=== PATIENT | female | born 1985 | race Caucasian/White ===

== ENCOUNTER 2016-09-19 08:41 | Emergency (ER) | payer OTHER ==
[~2016-09-19] VITALS: Ht 175.3 cm; Wt 85.0 kg
[2016-09-19 08:43] VITALS: BP 162/90; PULSE 65; RESP 15; TEMP 98.2; O2SAT 98
--- NOTE | 2016-09-19 08:54 | PD ---
HPI . left shoulder pain x 1 day Chief Complaint: Fall Time Seen by Provider: 08:53 Travel History International Travel<30 days: No Contact w/Intl Traveler<30days: No Traveled to known affect area: No History of Present Illness HPI 31 yr old female here with c/o left shoulder pain after falling on her arm last night. She tells me the pain in deep within the shoulder blade rated as 5/10 and hurts with movement. She denies any pain elsewhere and denies any head injury. PFSH Past Medical History ?: Not LMP: 2 WEEKS AGO Social History Tobacco Use: Yes Allergies-Medications (Allergen,Severity, Reaction): Coded Allergies: No Known Allergies (Unverified , 09/19/16) Reported Meds & Prescriptions Reported Meds & Active Scripts Active Flexeril (Cyclobenzaprine HCl) 5 Mg Tab 5 Mg PO TID Review of Systems General / Constitutional: No: Fever Eyes: No: Visual changes HENT: No: Headaches Cardiovascular: No: Chest Pain or Discomfort Respiratory: No: Shortness of Breath Gastrointestinal: No: Abdominal Pain Genitourinary: No: Dysuria Musculoskeletal: Positive: Pain (left shoulder) Skin: No Rash Neurologic: No: Weakness Psychiatric: No: Depression Endocrine: No: Polydipsia Hematologic/Lymphatic: No: Easy Bruising Physical Exam Narrative GENERAL: AAO x 3, no acute distress, Well-nourished, well-developed patient. SKIN: Warm and dry. No visible rashes or bruising. HEAD: Normocephalic and atraumatic. EYES: No scleral icterus. No injection or drainage. ENT: No nasal drainage noted. Mucous membranes pink. Airway patent. NECK: Supple, trachea midline. No JVD. CARDIOVASCULAR: Regular rate and rhythm without murmurs, gallops, or rubs. RESPIRATORY: Breath sounds equal bilaterally. No accessory muscle use. No rhonchi or rales. GASTROINTESTINAL: Abdomen soft, non-tender, nondistended. EXTREMITIES: No cyanosis or edema. left shoulder no evidence of dislocation, pain with internal and external rotation BACK: Nontender without obvious deformity. No CVA tenderness. 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 Data Data Last Documented VS Vital Signs Date Time Temp Pulse Resp B/P Pulse Ox O2 Delivery O2 Flow Rate FiO2 09/19/16 08:55 99 Room Air 09/19/16 08:43 98.2 65 15 162/90 Orders Shoulder, Complete (>2vws) (09/19/16 08:58) Support Splint (09/19/16 09:39) MDM Medical Decision Making Medical Screen Exam Complete: Yes Emergency Medical Condition: Yes Medical Record Reviewed: Yes Differential Diagnosis rotator cuff injury, less likely fracture, less likely dislocation Narrative Course 31 yr old female with left shoulder pain x1 day. It appears she may have a rotator cuff injury. She reports pain deep in her shoulder blader. I will check xray to r/o any bony abn due to mechanism of injury. She already took some ibuprofen this morning. Last Impressions Shoulder X-Ray 09/19/16 0858 Signed Impressions: Service Date/Time: Monday, September 19, 2016 09:31 - CONCLUSION: 1. No acute fracture or dislocation. Ace Montana MD I explained to the patient this seems more rotator cuff. Sling provided for support. Muscle relaxers at home. Recommend PCP f/u. Patient verbalized understanding of instructions, questions were answered, and thanked me for their care. I advised them if their condition worsens, please return to the nearest emergency room for further care. Diagnosis Primary Impression: Shoulder pain, left Qualified Code: M25.512 - Acute pain of left shoulder Additional Impression: Rotator cuff injury Qualified Code: S46.002A - Rotator cuff injury, left, initial encounter Patient Instructions: General Instructions Departure Forms: Tests/Procedures, Work Release Enter return to work date: Sep 20, 2016 Additional Instructions: Please follow-up with your primary care provider for further workup and treatment. Muscle relaxers can cause drowsiness. Do not drive, swim or operate heavy machinery while using these medications. Please return to emergency department if your symptoms return or worsen. Follow up with your primary care provider. Take medications as prescribed. Med/Other Pt SpecificInfo: Prescription(s) given Scripts Cyclobenzaprine (Flexeril)5 Mg Tab5 Mg PO TID #21 TAB Prov:Shola Burgess MD 09/19/16 Disposition: 01 DISCHARGE HOME Condition: Stable Martha Noe Sep 19, 2016 08:54
--- NOTE | 2016-09-19 09:36 | RADRPT ---
EXAM DATE/TIME: 09/19/2016 09:31 [facility] COMPARISON: No previous studies available for comparison. INDICATIONS : Fall. Left shoulder pain. MEDICAL HISTORY : None. SURGICAL HISTORY : None. ENCOUNTER: Initial ACUITY: 1 day PAIN SCORE: 6/10 LOCATION: Left shoulder FINDINGS: Multiple view examination of the left shoulder demonstrates no evidence of fracture or dislocation. The glenohumeral and acromioclavicular joints are maintained. There is normal range of motion betwee n internal and external rotation. Bony mineralization is normal. CONCLUSION: 1. No acute fracture or dislocation. Ace Montana MD on September 19, 2016 at 9:33 Board Certified Radiologist. This report was verified electronically.
[2016-09-19] MEDS ORDERED: CYCL5TAB PO (09:40)
== END 2016-09-19 09:56 | disposition home or self-care (01) ==
LOC: NEPK 08:41
DX: M25.512 Pain in left shoulder (principal); S46.002A Unspecified injury of muscle(s) and tendon(s) of the rotator cuff of left shoulder, initial encounter; Z72.0 Tobacco use; W19.XXXA Unspecified fall, initial encounter
CPT/HCPCS: 73030; 99283

== ENCOUNTER 2017-12-04 08:21 | Inpatient (IN) ==
[2017-12-04] MEDS ORDERED: Naloxone Inj 0.4 MG/ML Vial IV.PUSH PRN (09:34)
[2017-12-04] MEDS ORDERED: fentaNYL Citrate Inj 100 MCG/2 ML Ampul IV.PUSH PRN ×2 (09:34)
[2017-12-04] MEDS ORDERED: Sod Chloride 0.9% Inj 1,000 ML IV.CONT PRN (09:34)
[2017-12-04] MEDS ORDERED: Sodium Chlor 0.9% Inj 500 ML IV.SIG PRN (09:34)
--- NOTE | 2017-12-04 09:40 | P.HPOB ---
History of Present Illness Service: obstetrics Primary Care Physician: Jordon Smith Gestation:: 39 Para: 0 : 1 - Inpatient Certification I certify that the inpatient services were ordered in accordance with Medicare regulations governing the order. This includes certification that hospital inpatient services are reasonable and necessary and in the case of services not specified as inpatient-only under 42 CFR 419.22(n), that they are appropriately provided as inpatient services in accordance to with the 2-midnight benchmark under 43 CFR 412.3(e) Estimated Total Length of Stay (Days): 3 Plans for Post Hospital Care: Home Review of Systems All other systems reviewed negative except as stated in HPI [facility] - Medical History Medical History: Medical History (Last Updated 12/04/17 @ 09:38 by Kamran Reddy MD) Hypertension affecting in third trimester - Social History I have reviewed the patient's Social History: Yes - Tobacco History Second Hand Smoke Exposure: No Tobacco Use In Past 30 Days: No - Alcohol History How Often Do You Have a Drink Containing Alcohol: Never - Travel History History of Recent Travel: No Recent Travel in the [place] Within the Last 8 Weeks: No Recent Travel Out of the Country Within the Last 8 Weeks: No Medications and Allergies Active Medications: Active Medications Citric Acid/Sodium Citrate (Sodium Citrate/Citric Acid Liq) 30 ml PO [facility] Stop: 12/08/17 09:44 Fentanyl Citrate (Fentanyl Inj) 50 mcg IV.PUSH Q1H PRN PRN Reason: Pain Scale 3 - 5 Fentanyl Citrate (Fentanyl Inj) 100 mcg IV.PUSH Q1H PRN PRN Reason: PAIN SCALE 6 TO 10 Lactated Ringer's (Lr 1000 Ml Inj) 1,000 mls @ 125 mls/hr IV.CONT .Q8H ANUJ Lactated Ringer's (Lr 1000 Ml Inj) 1,000 mls @ 3,000 mls/hr IV.SIG UNSCH PRN PRN Reason: compromise or epidural Sodium Chloride (Ns Inj) 500 mls @ 1,000 mls/hr IV.SIG UNSCH PRN PRN Reason: SEE LABEL COMMENTS Oxytocin (Pitocin 30 Units/Ns 500 Ml Premix) 30 units in 500 mls @ 999 mls/hr IV.SIG BOLUS ONE Stop: 12/04/17 10:04 Penicillin G Potassium 5,000, (000 unit/ Sodium Chloride) 100 mls @ 200 mls/hr IV.SIG ONCE ONE Stop: 10/01/18 10:03 Lidocaine HCl (Xylocaine 1% Inj) 0.1 ml I-DERMAL PRN PRN PRN Reason: For IV start Stop: 12/07/17 09:33 Lidocaine HCl (Xylocaine 1% Inj) 10 ml INFILTRATN PRN PRN PRN Reason: For episiotomy repair Stop: 12/06/17 09:33 Mineral Oil (Muri-Lube Oil) 10 ml TOPICAL PRN PRN PRN Reason: PRN perineal massage Naloxone HCl (Narcan Inj) 0.1 mg IV.PUSH Q2M PRN PRN Reason: for opiate reversal Allergies Allergy/AdvReac Type Severity Reaction Status Date / Time No Known Allergies Allergy Unknown none Uncoded 12/04/17 08:42 Home Medications Medication Instructions Recorded Confirmed Type PNV-Select 12/04/17 History methyldopa 500 BID 12/04/17 History Exam Vital signs: Vital Signs 12/04/17 09:07 12/04/17 09:15 Pulse Rate 89 Respiratory Rate 17 Blood Pressure 150/83 H Intake & Output 12/03/17 12/04/17 12/04/17 18:59 06:59 18:59 Weight 124.738 kg - Constitutional no acute distress - Routine HEENT Exam Head: Present: normocephalic - Routine Respiratory Exam Present: CTA bilaterally - Routine Cardiovascular Exam Present: RRR - Routine Abdominal Exam Present: soft, normoactive bowel sounds - Routine Exam Patient deferred: external exam External: Present: normal urethra appearance Perineum Description: Intact Comments: gravid uterus cervix closed - Routine Extremities Exam Present: full ROM - Routine Skin Exam Present: intact - Routine Neurological Exam Present: alert, oriented X3 Results - Labs Group B Strep: Positive Caprini VTE Risk Assessment Caprini VTE Risk Assessment: No/Low Risk (score <= 1) Caprini Risk Assessment Model: Point Value = 1 Point Value = 2 Point Value = 3 Point Value = 5 Age 41-60 Minor surgery BMI > 25 kg/m2 Swollen legs Varicose veins or History of unexplained or recurrent spontaneous Oral contraceptives or hormone replacement Sepsis (< 1 month) Serious lung disease, including pneumonia (< 1 month) Abnormal pulmonary function Acute myocardial infarction Congestive heart failure (< 1 month) History of inflammatory bowel disease Medical patient at bed rest Age 61-74 Arthroscopic surgery Major open surgery (> 45 min) Laparoscopic surgery (> 45 min) Malignancy Confined to bed (> 72 hours) Immobilizing plaster cast Central venous access Age >= 75 History of VTE Family history of VTE Factor V Leiden Prothrombin [id number] Lupus anticoagulant Anticardiolipin antibodies Elevated serum homocysteine Heparin-induced thrombocytopenia Other congenital or acquired thrombophilia Stroke (< 1 month) Elective arthroplasty Hip, pelvis, or leg fracture Acute spinal cord injury (< 1 month) Prophylaxis Regimen: Total Risk Factor Score Risk Level Prophylaxis Regimen 0-1 Low Early ambulation 2 Moderate Order ONE of the following: *Sequential Compression Device (SCD) *Heparin 5000 units SQ BID 3-4 Higher Order ONE of the following medications: *Heparin 5000 units SQ TID *Enoxaparin/Lovenox 40 mg SQ daily (WT < 150 kg, CrCl > 30 mL/min) *Enoxaparin/Lovenox 30 mg SQ daily (WT < 150 kg, CrCl > 10-29 mL/min) *Enoxaparin/Lovenox 30 mg SQ BID (WT < 150 kg, CrCl > 30 mL/min) AND/OR *Sequential Compression Device (SCD) 5 or more Highest Order ONE of the following medications: *Heparin 5000 units SQ TID (Preferred with Epidurals) *Enoxaparin/Lovenox 40 mg SQ daily (WT < 150 kg, CrCl > 30 mL/min) *Enoxaparin/Lovenox 30 mg SQ daily (WT < 150 kg, CrCl > 10-29 mL/min) *Enoxaparin/Lovenox 30 mg SQ BID (WT < 150 kg, CrCl > 30 mL/min) AND *Sequential Compression Device (SCD) Assessment and Plan - Diagnosis (1) Hypertension affecting in third trimester Code(s): O16.3 - Status: Acute - Plan cytotec induction
[2017-12-04] MEDS ORDERED: Citric Acid/Sodium Citrate Liq 30 ML UDC PO SCH (09:45)
[2017-12-04 09:47] LABS: Baso % (Auto) 0.1 % (0.0-2.0); Eos # (Auto) 0.1 th/mm3 (0.0-0.4); Eos % (Auto) 0.4 % (0.0-4.0); Hematocrit 33.8 % (35.0-46.0); Hemoglobin 11.3 gm/dL (11.6-15.3); Lymph # (Auto) 1.9 th/mm3 (1.0-4.8); Mean Corpuscular HGB Conc 33.3 % (32.0-36.0); Mean Corpuscular Hemoglobin 30.7 pg (27.0-34.0); Mean Platelet Volume 8.5 fL (7.0-11.0); Mono # (Auto) 0.7 th/mm3 (0.0-0.9); Mono % (Auto) 5.3 % (0.0-8.0); Neut # (Auto) 10.8 th/mm3 (1.8-7.7); Neut % (Auto) 80.2 % (16.0-70.0); Platelet Count 233 th/mm3 (150-450); Red Blood Count 3.67 mil/mm3 (4.00-5.30); Red Cell Distribution Width 13.9 % (11.6-17.2); White Blood Count 13.5 th/mm3 (4.0-11.0)
[2017-12-04] MEDS ORDERED: Penicillin G Potassium Inj 5,000,000 UNIT in Sodium Chloride 0.9% Inj 100 ML IV.SIG ONE (10:00)
[2017-12-04] MEDS ORDERED: Oxytocin 30 Units/500ml Premix 30 UNITS/500 ML BAG IV.SIG ONE (10:00)
[2017-12-04 10:07] LABS: Bilirubin,Urine Negative (Negative); Clarity,Urine Hazy (Clear); Color,Urine Yellow (Yellw/Straw); Glucose,Urine (UA) Negative (Negative); Leukocyte Esterase,Urine Negative (Negative); Mucus,Urine Few /lpf (Occasional); Nitrite,Urine Negative (Negative); Specific Gravity,Urine 1.021 (1.002-1.035); Squamous Epithelial Cell,Urine 4 /hpf (0-5)
[2017-12-04 10:10] LABS: Amphetamine Urine With Conf Neg (Neg); Benzodiazepine Urine With Conf Neg (Neg)
[2017-12-04 10:18] LABS: Albumin 2.8 g/dL (3.4-5.0); Anion Gap 11 meq/L (5-15); Aspartate Aminotransferase 9 U/L (15-37); Blood Urea Nitrogen 13 mg/dL (7-18); Calcium 8.8 mg/dL (8.5-10.1); Carbon Dioxide 19.6 meq/L (21.0-32.0); Chloride 109 meq/L (98-107); Glomerular Filtration Rate 66 mL/min (>89); Glucose,Random 126 mg/dL (74-106); Potassium 3.8 meq/L (3.5-5.1); Sodium 140 meq/L (136-145)
[2017-12-04 10:19] LABS: Alanine Aminotransferase 17 U/L (10-53)
[2017-12-04 10:21] LABS: Alkaline Phosphatase 86 U/L (45-117); Total Protein 6.7 g/dL (6.4-8.2)
--- NOTE | 2017-12-04 12:51 | P.OBLABOR ---
Subjective Interval history: patient doing well not feeling CTX with 1st dose miso Objective Vital Signs: Vital Signs - 8 hr 12/04/17 09:07 12/04/17 09:15 12/04/17 09:59 Temperature Pulse Rate 89 66 Respiratory Rate 17 Blood Pressure 150/83 H 131/75 12/04/17 10:00 12/04/17 10:30 12/04/17 11:37 Temperature 97.9 F Pulse Rate 55 L Respiratory Rate 17 18 17 Blood Pressure 146/70 H Objective: Pelvic Exam: Cervix: [-] Dilatation: [-] Effacement: [-] Station: [-] Presentation: [-] Membranes: [intact or ruptured] Uterine Contractions: [-] FHT's: Category: [-] Baseline: [-] Reactive: [-] Variability: [-] Decels: [-] Assessment and Plan - Diagnosis (1) Hypertension affecting in third trimester Code(s): O16.3 - Unspecified maternal hypertension, third trimester Status: Acute - Plan cytotec induction
[2017-12-04] MEDS: Penicillin G Potassium Inj 2,500,000 UNIT in Sodium Chlor 0.9% Inj 100 ML IV.SIG SCH ×4 (18:07→22:04)
[2017-12-04] MEDS ORDERED: Oxytocin 30 Units/500ml Premix 30 UNITS/500 ML BAG IV.SIG PRN (18:15)
--- NOTE | 2017-12-04 18:19 | P.OBLABOR ---
Subjective Interval history: hypertension controlled. Start pitocin and now AROM Objective Vital Signs: Vital Signs - 8 hr 12/04/17 10:30 12/04/17 11:37 Pulse Rate 55 L Respiratory Rate 18 17 Blood Pressure 146/70 H Objective: Pelvic Exam: Cervix: [-] Dilatation: [-] Effacement: [-] Station: [-] Presentation: [-] Membranes: [intact or ruptured] Uterine Contractions: [-] FHT's: Category: [-] Baseline: [-] Reactive: [-] Variability: [-] Decels: [-] Patient Started Active Labor: Yes Active Labor Start Date: 12/04/17 Active Labor Start Time: 10:00 Medical Induction of Labor: Yes (hypertension at 39 weeks) Medical Induction Start Date: 12/04/17 Medical Induction Start Time: 10:00 Artificial ROM Date: 12/04/17 Artificial ROM Time: 18:15 Assessment and Plan - Diagnosis (1) Hypertension affecting in third trimester Code(s): O16.3 - Unspecified maternal hypertension, third trimester Status: Acute - Plan cytotec induction, now starting pitocin, 2x pen G and cervix 1-2/-2 AROM clear
[2017-12-04] MEDS ORDERED: fentaNYL 2MCG-Bupiv 0.125% Epi 150 ML EPIDURAL ONE (22:52)
[2017-12-04] MEDS ORDERED: Lidocaaine 1.5%/Epinephrine 1:200,000 PF Inj 5 ML Amp ONE (23:04)
[2017-12-04] MEDS ORDERED: Lidocaine PF 1% Inj 10 ML Amp ONE (23:04)
[2017-12-04] MEDS ORDERED: fentaNYL Citrate Inj 100 MCG/2 ML Ampul EPIDURAL ONE (23:32)
[2017-12-05] MEDS: Penicillin G Potassium Inj 2,500,000 UNIT in Sodium Chlor 0.9% Inj 100 ML IV.SIG SCH ×3 (02:00→10:33)
[2017-12-05] MEDS: fentaNYL 2MCG-Bupiv 0.125% Epi 150 ML EPIDURAL PRN ×2 (04:00→14:29)
--- NOTE | 2017-12-05 08:31 | P.OBLABOR ---
Subjective Interval history: labor for 24 hours with cervical ripening for 10 hours before AROM. She has been in Labor now with IU Objective Objective: Pelvic Exam: Cervix: [-] Dilatation: [-] Effacement: [-] Station: [-] Presentation: [-] Membranes: [intact or ruptured] Uterine Contractions: [-] FHT's: Category: [-] Baseline: [-] Reactive: [-] Variability: [-] Decels: [-] Patient Started Active Labor: Yes Assessment and Plan - Diagnosis (1) Hypertension affecting in third trimester Code(s): O16.3 - Unspecified maternal hypertension, third trimester Status: Acute - Plan cytotec induction, now starting pitocin, 2x pen G and cervix 1-/-2 AROM clear
[2017-12-05] MEDS ORDERED: Lidocaine 1% Inj 50 ML Vial ONE (12:13)
[2017-12-05] MEDS ORDERED: Bisacodyl 10 MG Supp RECTAL PRN (14:00)
[2017-12-05] MEDS ORDERED: Benzocaine 20% Top Spray 60 ML Can TOPICAL PRN (14:00)
[2017-12-05] MEDS ORDERED: Naloxone Inj 0.4 MG/ML Vial IV.PUSH PRN (14:00)
[2017-12-05] MEDS ORDERED: Acetaminophen 325 MG Tablet PO PRN (14:00)
[2017-12-05] MEDS ORDERED: Witch Hazel 50%/Glyderin 12.5% 40 Pad Jar RECTAL PRN (14:00)
[2017-12-05] MEDS ORDERED: Oxytocin 30 Units/500ml Premix 30 UNITS/500 ML BAG IV.CONT PRN (14:00)
[2017-12-05] MEDS ORDERED: Zolpidem Tartrate 5 MG Tablet PO PRN (14:00)
--- NOTE | 2017-12-05 14:04 | P.OBDELI ---
Weeks Gestation: 39 Anesthesia: Epidural Episiotomy: none Vaginal Delivery: Normal, Vacuum ( bradycardia) Presentation: Occiput anterior Nuchal Cord: x1 Delayed Cord Clamping (45 sec): Yes Placenta: Spontaneous delivery, Intact, 3 vessel cord Laceration: Vaginal, 2 deg Repair: Chromic running Estimated blood loss (mL): 300
[2017-12-05] MEDS ORDERED: Measles/Mumps/Rubella Vaccine Inj 0.5 ML Vial SQ ONE (16:00)
[2017-12-05] MEDS ORDERED: Diphtheria/Tetanus/Pertussis Vaccine Inj 0.5 ML Syringe IM ONE (16:00)
[2017-12-05] MEDS: Senna/Docusate Sodium 8.6/50 MG Tablet PO SCH (20:46)
--- NOTE | 2017-12-06 09:00 | P.PNOB ---
Subjective Post day: 1 Interval history: doing well breast feeding bleeding normal, ambulating Objective Vital Signs/I&O: Vital Signs 12/05/17 09:30 12/05/17 09:35 12/05/17 09:40 Temperature Pulse Rate 48 L 60 Respiratory Rate 17 Blood Pressure 138/81 12/05/17 09:55 12/05/17 10:01 12/05/17 10:10 Temperature Pulse Rate 54 L 56 L 52 L Respiratory Rate Blood Pressure 136/72 12/05/17 10:25 12/05/17 10:28 12/05/17 10:35 Temperature Pulse Rate 60 59 L Respiratory Rate 17 Blood Pressure 120/74 12/05/17 10:40 12/05/17 10:50 12/05/17 10:54 Temperature Pulse Rate 63 64 Respiratory Rate 18 Blood Pressure 12/05/17 10:55 12/05/17 11:10 12/05/17 11:35 Temperature Pulse Rate 59 L 58 L 69 Respiratory Rate Blood Pressure 135/74 12/05/17 11:55 12/05/17 12:05 12/05/17 12:10 Temperature Pulse Rate 72 56 L 66 Respiratory Rate Blood Pressure 136/72 12/05/17 12:35 12/05/17 12:40 12/05/17 12:43 Temperature 98.5 F Pulse Rate 53 L 81 Respiratory Rate 18 Blood Pressure 155/73 H 12/05/17 12:55 12/05/17 13:10 12/05/17 13:13 Temperature Pulse Rate 53 L 54 L Respiratory Rate 17 Blood Pressure 133/74 12/05/17 13:25 12/05/17 14:02 12/05/17 14:10 Temperature 98.2 F Pulse Rate 49 L 74 Respiratory Rate 17 Blood Pressure 125/83 12/05/17 14:31 12/05/17 14:40 12/05/17 14:46 Temperature Pulse Rate 75 72 Respiratory Rate 18 Blood Pressure 140/80 130/69 12/05/17 14:55 12/05/17 15:10 12/05/17 16:03 Temperature 98.2 F Pulse Rate 75 67 Respiratory Rate 17 19 20 Blood Pressure 124/65 122/64 12/05/17 22:20 12/06/17 05:00 Temperature 98.1 F Pulse Rate 65 59 L Respiratory Rate 18 18 Blood Pressure 112/67 98/54 L Intake & Output 12/05/17 12/06/17 12/06/17 18:59 06:59 18:59 Intake Total 1100 / 1100 Balance 1100 / 1100 Intake: IV 1100 / 1100 LR 1000 mL Inj 1,000 ML @ 125 1000 / 1000 mls/hr IV.CONT .Q8H ANUJ Rx#: [id number] Pfizerpen-G Inj 2,500,000 UNIT 100 / 100 In NS Inj 100 ML @ 200 mls/hr IV.SIG Q4H ANUJ Rx#:[id number] Result Diagrams: 12/04/17 08:45 12/04/17 08:45 Objective Remarks: GENERAL: Well-nourished, well-developed patient. ABDOMEN/GI: Abdomen soft, non-tender. Fundus: Firm, non-tender at umbilicus. GENITOURINARY: Light to moderate bleeding. EXTREMITIES: No cyanosis or edema, non-tender, without signs of DVT. Medications and IVs: Active Medications Acetaminophen (Tylenol) 650 mg PO Q4H PRN PRN Reason: PAIN SCALE 1 TO 2 Last Admin: 12/05/17 14:50 Dose: 650 mg Al Hydroxide/Mg Hydroxide (Milk Of Magnesia Liq) 30 ml PO Q12H PRN PRN Reason: Mild Constipation Benzocaine (Americaine 20% Top [place]) 1 spray TOPICAL Q4H PRN PRN Reason: For Perineum Discomfort Last Admin: 12/05/17 17:30 Dose: 1 spray Bisacodyl (Dulcolax Supp) 10 mg RECTAL DAILY PRN PRN Reason: SEVERE CONSITIPATION Oxytocin (Pitocin 30 Units/Ns 500 Ml Premix) 30 units in 500 mls @ 2 mls/hr IV.SIG TITRATE PRN; Protocol PRN Reason: For induction of labor Last Admin: 12/04/17 18:41 Dose: 2 milliunit/min, 2 mls/hr Fentanyl/Bupivacaine/Sodium Chlor (Fentanyl 2 Mcg-Bupiv 0.125% Epi) 150 mls @ 12 mls/hr EPIDURAL PRN PRN PRN Reason: for Labor Pain Last Admin: 12/05/17 14:29 Dose: 12 mls/hr Oxytocin (Pitocin 30 Units/Ns 500 Ml Premix) 30 units in 500 mls @ 100 mls/hr IV.CONT UNSCH PRN PRN Reason: Heavy bleeding Ibuprofen (Motrin) 800 mg PO Q8H PRN PRN Reason: For Cramping Last Admin: 12/06/17 05:01 Dose: 800 mg Lactulose (Lactulose Liq) 30 ml PO DAILY PRN PRN Reason: SEVERE CONSITIPATION Naloxone HCl (Narcan Inj) 0.1 mg IV.PUSH Q2M PRN PRN Reason: for opiate reversal Ondansetron HCl (Zofran Odt) 4 mg PO Q6H PRN PRN Reason: NAUSEA OR VOMITING Oxycodone/Acetaminophen (Percocet 5/325 Mg) 2 tab PO Q4H PRN PRN Reason: PAIN SCALE 6 TO 10 Oxycodone/Acetaminophen (Percocet 5/325 Mg) 1 tab PO Q4H PRN PRN Reason: PAIN SCALE 3 TO 5 Last Admin: 12/06/17 05:00 Dose: 1 tab Senna/Docusate Sodium (Gaby-Colace) 1 tab PO BID [facility] Last Admin: 12/05/17 20:46 Dose: 1 tab Sennosides (Senokot) 17.2 mg PO Q12H PRN PRN Reason: Moderate Constipation Sodium Chloride (Ns Flush) 2 ml IV.FLUSH BID [facility] Last Admin: 12/05/17 08:57 Dose: Not Given Sodium Chloride (Ns Flush) 2 ml IV.FLUSH UNSCH PRN PRN Reason: FLUSH AFTER USING IV ACCESS Sodium Chloride (Ns Flush) 2 ml IV.FLUSH BID [facility] Witch Alissa/Glycerin (Tucks Pads) 1 applicatio RECTAL QID PRN PRN Reason: HEMORRHOIDS Last Admin: 12/05/17 17:30 Dose: 1 applicatio Zolpidem Tartrate (Ambien) 5 mg PO HS PRN PRN Reason: SLEEP Assessment and Plan - Diagnosis (1) Hypertension affecting in third trimester Code(s): O16.3 - Unspecified maternal hypertension, third trimester Status: Acute - Plan cytotec induction, now starting pitocin, 2x pen G and cervix 1-/-2 AROM clear
[2017-12-06] MEDS: Senna/Docusate Sodium 8.6/50 MG Tablet PO SCH ×2 (09:33→21:57)
[2017-12-06] MEDS ORDERED: Diphtheria/Tetanus/Pertussis Vaccine Inj 0.5 ML Syringe IM ONE (16:30)
--- NOTE | 2017-12-07 08:18 | P.PNOB ---
Subjective Post day: 2 Interval history: doing well but having anxiety with breast feeding. Doing better Objective Vital Signs/I&O: Vital Signs 12/06/17 12:10 12/06/17 16:30 12/06/17 20:00 Temperature 98.0 F 98.0 F 98.8 F Pulse Rate 75 63 65 Respiratory Rate 20 20 19 Blood Pressure 138/79 138/75 145/74 H 12/06/17 20:45 12/07/17 04:00 Temperature 98.1 F Pulse Rate 72 59 L Respiratory Rate 20 19 Blood Pressure 139/72 126/65 Intake & Output 12/06/17 12/07/17 12/07/17 18:59 06:59 18:59 Intake Total 0 / 0 Balance 0 / 0 Intake: Intake (Blood Product) Amt 0 / 0 Rho(D) Immune Globulin Unit 0 / 0 [id number] Result Diagrams: 12/04/17 08:45 12/04/17 08:45 Objective Remarks: GENERAL: Well-nourished, well-developed patient. CARDIOVASCULAR: Regular rate and rhythm without murmurs, gallops, or rubs. RESPIRATORY: Breath sounds equal bilaterally. No accessory muscle use. ABDOMEN/GI: Abdomen soft, non-tender. Fundus: Firm, non-tender at umbilicus. GENITOURINARY: Light to moderate bleeding. EXTREMITIES: No cyanosis or edema, non-tender, without signs of DVT. Medications and IVs: Active Medications Acetaminophen (Tylenol) 650 mg PO Q4H PRN PRN Reason: PAIN SCALE 1 TO 2 Last Admin: 12/05/17 14:50 Dose: 650 mg Al Hydroxide/Mg Hydroxide (Milk Of Ce Liq) 30 ml PO Q12H PRN PRN Reason: Mild Constipation Benzocaine (Americaine 20% Top [place]) 1 spray TOPICAL Q4H PRN PRN Reason: For Perineum Discomfort Last Admin: 12/05/17 17:30 Dose: 1 spray Bisacodyl (Dulcolax Supp) 10 mg RECTAL DAILY PRN PRN Reason: SEVERE CONSITIPATION Oxytocin (Pitocin 30 Units/Ns 500 Ml Premix) 30 units in 500 mls @ 2 mls/hr IV.SIG TITRATE PRN; Protocol PRN Reason: For induction of labor Last Admin: 12/04/17 18:41 Dose: 2 milliunit/min, 2 mls/hr Fentanyl/Bupivacaine/Sodium Chlor (Fentanyl 2 Mcg-Bupiv 0.125% Epi) 150 mls @ 12 mls/hr EPIDURAL PRN PRN PRN Reason: for Labor Pain Last Admin: 12/05/17 14:29 Dose: 12 mls/hr Oxytocin (Pitocin 30 Units/Ns 500 Ml Premix) 30 units in 500 mls @ 100 mls/hr IV.CONT UNSCH PRN PRN Reason: Heavy bleeding Ibuprofen (Motrin) 800 mg PO Q8H PRN PRN Reason: For Cramping Last Admin: 12/07/17 07:50 Dose: 800 mg Lactulose (Lactulose Liq) 30 ml PO DAILY PRN PRN Reason: SEVERE CONSITIPATION Naloxone HCl (Narcan Inj) 0.1 mg IV.PUSH Q2M PRN PRN Reason: for opiate reversal Ondansetron HCl (Zofran Odt) 4 mg PO Q6H PRN PRN Reason: NAUSEA OR VOMITING Oxycodone/Acetaminophen (Percocet 5/325 Mg) 2 tab PO Q4H PRN PRN Reason: PAIN SCALE 6 TO 10 Oxycodone/Acetaminophen (Percocet 5/325 Mg) 1 tab PO Q4H PRN PRN Reason: PAIN SCALE 3 TO 5 Last Admin: 12/06/17 21:57 Dose: 1 tab Senna/Docusate Sodium (Gaby-Colace) 1 tab PO BID [facility] Last Admin: 12/06/17 21:57 Dose: 1 tab Sennosides (Senokot) 17.2 mg PO Q12H PRN PRN Reason: Moderate Constipation Sodium Chloride (Ns Flush) 2 ml IV.FLUSH BID [facility] Last Admin: 12/07/17 00:08 Dose: Not Given Sodium Chloride (Ns Flush) 2 ml IV.FLUSH UNSCH PRN PRN Reason: FLUSH AFTER USING IV ACCESS Sodium Chloride (Ns Flush) 2 ml IV.FLUSH BID [facility] Last Admin: 12/07/17 00:08 Dose: Not Given Witch Alissa/Glycerin (Tucks Pads) 1 applicatio RECTAL QID PRN PRN Reason: HEMORRHOIDS Last Admin: 12/05/17 17:30 Dose: 1 applicatio Zolpidem Tartrate (Ambien) 5 mg PO HS PRN PRN Reason: SLEEP Assessment and Plan - Diagnosis (1) Hypertension affecting in third trimester Code(s): O16.3 - Unspecified maternal hypertension, third trimester Status: Acute - Plan DC home today
--- NOTE | 2017-12-07 08:41 | P.DS ---
Date of admission: 12/04/17 08:21 Primary care physician: Jordon Cason Brief History from admission: patient came in for induction for HTN and is DC home BP controlled DS: Diagnosis - Discharge Diagnosis (1) Hypertension affecting in third trimester Status: Acute (2) (spontaneous vaginal delivery) Status: Acute DS: Medications - Discharge Medications Prescriptions: oxycodone-acetaminophen 2 tab PO Q4H PRN 3 Days #20 tab PRN Reason: Pain Scale 6 To 10 DS: Summary Hospital Course: Patient came and received cytotec and delivered day after admission doing well now - Time Spent with Patient Total time spent providing and/or coordinating discharge services: Less than 30 minutes Exam Vital signs: Vital Signs 12/06/17 12:10 12/06/17 16:30 12/06/17 20:00 Temperature 98.0 F 98.0 F 98.8 F Pulse Rate 75 63 65 Respiratory Rate 20 20 19 Blood Pressure 138/79 138/75 145/74 H 12/06/17 20:45 12/07/17 04:00 Temperature 98.1 F Pulse Rate 72 59 L Respiratory Rate 20 19 Blood Pressure 139/72 126/65 Intake & Output 12/06/17 12/07/17 12/07/17 18:59 06:59 18:59 Intake Total 0 / 0 Balance 0 / 0 Intake: Intake (Blood Product) Amt 0 / 0 Rho(D) Immune Globulin Unit 0 / 0 [id number] - Constitutional no acute distress Results Procedures completed during hospitalization: Labs on day of discharge: Labs from last 24 hours 12/06/17 12/05/17 22:20 19:51 POC Glucose 140 H Blood Type A Negative Ab Screen Tube Method Negative Blood Bank Comment Discharge Plan - Discharge Disposition Patient Disposition: 01 Discharge Home - Discharge Condition Condition: Good - Discharge Order Discharge Orders: Discharge Order (Routine); Ordered 12/07/17 Ordered By: Kamran Reddy - Physicians Team Primary Care Provider: Jordon Cason Attending Provider: Kamran Reddy - Rxs /Orders / Referrals /Forms Prescriptions: New oxycodone-acetaminophen 5-325 mg Tablet 2 tab PO Q4H PRN (Reason: Pain Scale 6 To 10) 3 Days Qty: 20 RF: 0 Continue PNV-Select Discontinued methyldopa 500 mg Tablet 500 BID Referrals: Kamran Reddy MD [Physician] - See Instructions (call for Appt 2 weeks) Jordon Cason [Primary Care Provider] - See Instructions - Discharge Instructions Patient Printed Instructions: Depression (GEN), Preeclampsia and Eclampsia After Delivery (GEN), Vaginal Delivery (DC) - Post Discharge Care Plan Care Plan Goals: Congratulations on your new baby! We want your recovery to be clark and trouble free. Please Report the Following Symptoms to Your Doctor: -Temperature above 100.5 degrees -Unusual pain or calf pain -Increased vaginal bleeding -Painful or difficulty urinating -Feelings of extreme sadness or anxiety Goals to Promote Your Health * To prevent worsening of your condition and complications * To maintain your health at the optimal level Directions to Meet Your Goals Take your medications as prescribed Follow your dietary instruction Follow activity as directed Ensure plenty of rest for recovery Drink fluids for hydration Keep your appointments as scheduled Take your immunizations and boosters as scheduled If your symptoms worsen call your OB Physician, or go to an Urgent Care Center or Emergency Room Smoking is Dangerous to your health. Avoid second hand smoke Call the 24-hour crisis hotline for domestic abuse at
[2017-12-07 08:47] VITALS: BP 140/82
[2017-12-07 08:48] VITALS: PULSE 69; RESP 20; TEMP 97.8
[2017-12-07] MEDS: Senna/Docusate Sodium 8.6/50 MG Tablet PO SCH (09:00)
[2017-12-07] MEDS ORDERED: Influenza (Quadrivalent) Vaccine 0.5 ML Syringe IM ONE (10:00)
--- NOTE | 2017-12-07 15:29 | ECG ---
Date Performed: 12/06/2017 Time Performed: 22:26:08 PTAGE: 32 years EKG: Sinus rhythm NORMAL ECG NO PREVIOUS TRACING DOCTOR: Tatyana Garg Interpretating Date/Time 12/07/2017 15:26:53
== END 2017-12-07 14:18 | disposition home or self-care (01) ==
LOC: H2E 08:21 → H1EA 12-05 15:40
PROVIDERS: ADMIT Obstetrics & Gynecology; ATTEND Obstetrics & Gynecology